=== PATIENT | female | born 1965 | race Caucasian/White ===

== ENCOUNTER → 2020-05-22 | Outpatient (CLI) | payer BC, OTHER ==
--- NOTE | 2020-05-22 16:26 | RAD ---
EXAM: MRI RIGHT SHOULDER WITHOUT CONTRAST INDICATION: Worsening chronic right shoulder pain COMPARISON: Right shoulder radiograph 05/10/2020 TECHNIQUE: Multiplanar, multisequence imaging of the right shoulder Without contrast. FINDINGS: ROTATOR CUFF: Mild supraspinatus tendinopathy. Infraspinatus, subscapularis, teres minor tendons are intact.. Rotator cuff muscles are normal. LABRUM: Circumferential degenerative labral tear. BICEPS TENDON: There is intra-articular biceps tendinopathy. The biceps tendon is displaced as it exits the joint by a healing humeral head fracture fragment. ACROMIOCLAVICULAR JOINT: Within normal limits. GLENOHUMERAL JOINT AND BONES: There is a healing comminuted humeral head fracture. There is osseous bridging across the mildly displaced greater tuberosity fracture component with no definite residual low signal fracture line. Partial bridging across the humeral neck fracture component with a persistent low signal fracture line. There is persistent T2 hyperintense signal along the humeral neck fracture line and in the proximal humeral shaft. There is somewhat serpiginous subchondral signal abnormality of the humeral head superiorly, adjacent to a fracture line (image 9 and 10, series 7 and 8). This could represent developing avascular necrosis. There is no subchondral collapse. Probable mild cartilage loss. Mild subchondral marrow edema in the superior glenoid. Alignment is normal. OTHER: Small amount of fluid in the joint and in the subacromial-subdeltoid bursa.. There is a 0.8 x 0.5 x 1.1 cm ovoid, well-circumscribed T2 hyperintense, T1 hypointense cystic lesion in the subcutaneous soft tissue overlying the posterior inferior deltoid muscle. IMPRESSION: 1. Healing proximal humerus fracture. There is somewhat serpiginous subchondral signal abnormality at the superior humeral head adjacent to the fracture that could represent developing avascular necrosis. No subchondral collapse. 3. Intra-articular biceps tendinopathy. Biceps tendon is displaced and mildly deformed by the healing fracture as it exits the joint. 2. Mild supraspinatus tendinopathy. No rotator cuff tear. 4. Circumferential degenerative labral tear. 5 1.1 cm subcutaneous cystic mass in the posterior shoulder. This could be a sebaceous cyst. Correlation with physical exam and ultrasound could be made to confirm. Electronically signed by: Essie Murray MD (05/22/2020 4:23 PM) [id number]
== END ==
LOC: MRI 11:01
PROVIDERS: ATTEND Physician Assistant
DX: S42.301A Unspecified fracture of shaft of humerus, right arm, initial encounter for closed fracture (principal); M12.811 Other specific arthropathies, not elsewhere classified, right shoulder; M75.101 Unspecified rotator cuff tear or rupture of right shoulder, not specified as traumatic; X58.XXXA Exposure to other specified factors, initial encounter; Y93.89 Activity, other specified; Y92.89 Other specified places as the place of occurrence of the external cause; Y99.8 Other external cause status
CPT/HCPCS: 73221

== ENCOUNTER → 2020-07-04 | Outpatient (CLI) | payer OTHER ==
[~2020-07-04] MED LIST: MV-M1TAB7 PO; OXYC1TAB19 PO
--- NOTE | 2020-07-04 10:45 | EKG ---
[facility] [address] [place] [address] Test Date: 2020-07-04 Test Time: 10:39:35 Pat Name: YADIEL CARRERA Department: Room: Gender: F Night Warehouse Manager: DL0 : 1965 Requested By: LINWOOD LAWRENCE Order Number: [id number] Reading MD: Tyler Schuster Measurements Intervals [place] Rate: 84 P: 63 NH: 162 QRS: 65 QRSD: 76 T: 44 QT: 374 QTc: 445 Interpretive Statements SINUS RHYTHM MINIMAL NONSPECIFIC T WAVE CHANGES RI6.02 No previous ECG available for comparison Electronically Signed On 07-06-2020 11:50:25 ASSISTANT COMMUNITY MANAGER by Tyler Schuster
[2020-07-04 10:47] LABS: BASO % 1 % (0-3); EOS # 0.1 x10^3/uL (0.0-0.7); EOS % 2 % (0-3); HEMOGLOBIN 14.9 g/dL (12.0-15.5); LYMPH # 1.4 x10^3/uL (1.0-4.8); LYMPH % 27 % (24-48); MEAN CORPUSCULAR HEMOGLOBIN 35 pg (25-35); MEAN CORPUSCULAR HGB CONC 34 g/dL (31-37); MEAN CORPUSCULAR VOLUME 102 fL (79-100); MONO # 0.4 x10^3/uL (0.0-1.1); MONO % 8 % (0-9); NEUT # 3.4 x10^3/uL (1.8-7.7); NEUT % 63 % (31-73); PLATELET COUNT 207 x10^3/uL (140-400); RED BLOOD COUNT 4.31 x10^6/uL (3.50-5.40); RED CELL DISTRIBUTION WIDTH 13.5 % (11.5-14.5); WHITE BLOOD COUNT 5.4 x10^3/uL (4.0-11.0)
[2020-07-04 10:50] LABS: PROTHROMBIN TIME PATIENT 13.4 SEC (11.7-14.0)
[2020-07-04 10:51] LABS: ALBUMIN 3.6 g/dL (3.4-5.0); ANION GAP 10 (6-14); BLOOD UREA NITROGEN 7 mg/dL (7-20); CALCIUM 8.5 mg/dL (8.5-10.1); CARBON DIOXIDE 27 mmol/L (21-32); CHLORIDE 98 mmol/L (98-107); CREATININE 0.6 mg/dL (0.6-1.0); GFR 103.4; GLUCOSE 139 mg/dL (70-99); POTASSIUM 3.6 mmol/L (3.5-5.1); SODIUM 135 mmol/L (136-145)
[2020-07-04 11:18] LABS: C-REACTIVE PROTEIN < 0.5 mg/L (0-3.3)
--- NOTE | 2020-07-04 16:31 | RAD ---
PA and lateral views of the chest. Comparison: None. Indication: Preop evaluation Findings: The heart size is normal. No pneumothorax or effusion. No air space or interstitial disease. The bon y structures are intact. Impression: 1. No acute cardiopulmonary process. Electronically signed by: Srini Burns MD (07/04/2020 4:28 PM) [id number]
[2020-07-04 23:13] LABS: HEMOGLOBIN A1C 4.6 % (4.8-5.6)
== END ==
LOC: SURGPAT 09:35
PROVIDERS: ATTEND Orthopaedic Surgery
DX: Z01.818 Encounter for other preprocedural examination (principal); S46.119A Strain of muscle, fascia and tendon of long head of biceps, unspecified arm, initial encounter; M87.00 Idiopathic aseptic necrosis of unspecified bone; X58.XXXA Exposure to other specified factors, initial encounter; Y93.89 Activity, other specified; Y92.89 Other specified places as the place of occurrence of the external cause; Y99.8 Other external cause status
CPT/HCPCS: 36415; 71046; 80048; 82040; 82306; 83036; 85025; 85610; 85730; 86140; 87641; 93005

== ENCOUNTER → 2020-08-15 | Outpatient (CLI) | payer OTHER ==
[~2020-08-15] MED LIST changes: -OXYC1TAB19 PO
[2020-08-15 11:33] LABS: BASO % 1 % (0-3); EOS # 0.1 x10^3/uL (0.0-0.7); EOS % 1 % (0-3); HEMATOCRIT 45.6 % (36.0-47.0); HEMOGLOBIN 15.3 g/dL (12.0-15.5); LYMPH # 1.3 x10^3/uL (1.0-4.8); LYMPH % 19 % (24-48); MEAN CORPUSCULAR HEMOGLOBIN 34 pg (25-35); MEAN CORPUSCULAR HGB CONC 34 g/dL (31-37); MEAN CORPUSCULAR VOLUME 101 fL (79-100); MONO # 0.7 x10^3/uL (0.0-1.1); MONO % 10 % (0-9); NEUT # 4.6 x10^3/uL (1.8-7.7); NEUT % 70 % (31-73); PLATELET COUNT 214 x10^3/uL (140-400); RED BLOOD COUNT 4.51 x10^6/uL (3.50-5.40); RED CELL DISTRIBUTION WIDTH 12.8 % (11.5-14.5); WHITE BLOOD COUNT 6.6 x10^3/uL (4.0-11.0)
[2020-08-15 11:49] LABS: PROTHROMBIN TIME PATIENT 13.2 SEC (11.7-14.0)
[2020-08-15 11:50] LABS: ALBUMIN 3.9 g/dL (3.4-5.0); ANION GAP 9 (6-14); BLOOD UREA NITROGEN 8 mg/dL (7-20); CALCIUM 9.4 mg/dL (8.5-10.1); CARBON DIOXIDE 28 mmol/L (21-32); CHLORIDE 95 mmol/L (98-107); CREATININE 0.7 mg/dL (0.6-1.0); GFR 86.6; GLUCOSE 115 mg/dL (70-99); POTASSIUM 4.2 mmol/L (3.5-5.1); SODIUM 132 mmol/L (136-145)
[2020-08-15 11:51] LABS: C-REACTIVE PROTEIN < 0.5 mg/L (0-3.3)
[2020-08-15 12:00] LABS: BILIRUBIN,URINE NEGATIVE (NEG); CLARITY,URINE CLEAR; COLOR,URINE YELLOW; NITRITE,URINE NEGATIVE (NEG); PH,URINE 5.5 (<5.0-8.0); PROTEIN,URINE NEGATIVE (NEG-TRACE); UROBILINOGEN,URINE 0.2 mg/dL (0.2 mg/dL)
[2020-08-15 12:15] LABS: BACTERIA,URINE FEW /HPF (0-FEW); RBC,URINE OCC /HPF (0-2); WBC,URINE 20-40 /HPF (0-4)
[2020-08-16 03:09] LABS: HEMOGLOBIN A1C 4.8 % (4.8-5.6)
== END ==
LOC: SURGPAT 10:05
PROVIDERS: ATTEND Orthopaedic Surgery
DX: Z01.812 Encounter for preprocedural laboratory examination (principal); S46.112A Strain of muscle, fascia and tendon of long head of biceps, left arm, initial encounter; M24.112 Other articular cartilage disorders, left shoulder; M87.00 Idiopathic aseptic necrosis of unspecified bone; X58.XXXA Exposure to other specified factors, initial encounter; Y93.9 Activity, unspecified; Y92.89 Other specified places as the place of occurrence of the external cause; Y99.8 Other external cause status
CPT/HCPCS: 36415; 80048; 81001; 82040; 82306; 83036; 85025; 85610; 85730; 86140; 87077; 87086; 87186; 87641

== ENCOUNTER → 2020-08-25 | Outpatient (CLI) | payer OTHER ==
[~2020-08-25] MED LIST changes: +OXYC1TAB19 PO
== END ==
LOC: LAB 10:24
PROVIDERS: ATTEND Orthopaedic Surgery
DX: Z01.812 Encounter for preprocedural laboratory examination (principal); Z20.822 Contact with and (suspected) exposure to COVID-19; S46.119A Strain of muscle, fascia and tendon of long head of biceps, unspecified arm, initial encounter; M87.00 Idiopathic aseptic necrosis of unspecified bone; X58.XXXA Exposure to other specified factors, initial encounter; Y93.89 Activity, other specified; Y92.89 Other specified places as the place of occurrence of the external cause; Y99.8 Other external cause status
CPT/HCPCS: U0003

== ENCOUNTER → 2020-08-29 | Day surgery (SDC) | payer OTHER ==
[~2020-08-29] VITALS: Ht 170.2 cm; Wt 59.4 kg
[~2020-08-29] MED LIST changes: +ACETAMINOPHEN 500 MG TABLET PO PRN; +DEXAMETHASONE SOD PHOS 4 MG/ML VIAL ONE; +EPINEPHrine 1 MG/ML VIAL IRR ONE; +GABAPENTIN 300 MG CAPSULE. PO PRN; +HYDROmorphone 2 MG/ML VIAL IVP PRN; +IV RINGERS,LACTATED 1000ML 1,000 ML IV SCH; +LIDOCAINE 2% PF 5 ML VIAL. ONE; +MELOXICAM 7.5 MG TABLET PO PRN; +MIDAZOLAM HCL/PF 2 MG/2 ML VIAL. ONE; +MORPHINE SULFATE 2 MG/ML VIAL. IVP PRN; +MORPHINE SULFATE 5 MG, KETOROLAC 30MG VIAL 30 MG, ROPIVacaine 0.5% PF 60 ML, EPINEPHrin... INT ART ONE; +ONDANSETRON PF 4 MG/2 ML VIAL. ONE; +PHENYLEPHRINE in 0.9% NACL PF 1 MG/10 ML SYRINGE. IV ONE; +PROCHLORPERAZINE 10 MG/2 ML VIAL. IVP PRN; +PROPOFOL 10 MG/ML (20ML) VIAL. IV ONE; +ROCURONIUM 50 MG/5 ML VIAL. ONE; +ROPIVacaine 0.5% PF 20 ML VIAL. ONE; +SEVOFLURANE 61 TO 120 MINUTES. IH ONE; +ceFAZolin SODIUM IV Push 1 GM VIAL. IVP PRN; +ePHEDrine PF IN SALINE 50 MG/10 ML SYRINGE. IV ONE; +fentaNYL PF VIAL 100 MCG/2 ML VIAL IVP PRN; +fentaNYL PF VIAL 100 MCG/2 ML VIAL ONE
--- NOTE | 2020-08-29 12:15 | HP ---
ADMIT DATE: 08/29/2020 CHIEF COMPLAINT: Right shoulder pain and weakness. HISTORY OF PRESENT ILLNESS: The patient sustained an injury about a year ago when she was trying to restrain her large pit bull from her neighbor's dogs. The right shoulder remains very painful to try and reach away from her side or overhead. She injured her left shoulder back in the summertime, but it was already much better even in late last year. 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 PAST MEDICAL HISTORY: Back pain. PAST SURGICAL HISTORY: Hysterectomy, ovarian cyst surgeries. FAMILY HISTORY: Father is . Mother alive. SOCIAL HISTORY: She has cut down on her smoking, now about a packet per day or less. Alcohol use, a couple of beers at night. Denies drug use. MEDICATIONS: List is reviewed. ALLERGIES: INCLUDE TETRACYCLINE AND DOXYCYCLINE. REVIEW OF SYSTEMS: Denies any recent chest pain, shortness of breath, febrile illness, focal weakness, numbness, tingling or constitutional symptoms. PHYSICAL EXAMINATION: VITAL SIGNS: Per admission sheet. HEENT: Atraumatic, normocephalic. HEART: Regular rate and rhythm. LUNGS: Clear to auscultation bilaterally. ABDOMEN: Benign. EXTREMITIES: Right shoulder is limited in terminal range of motion secondary to pain. Normal motion of the left shoulder, bilateral wrists and elbows and she has no apprehension or instability. She is tender over the bicipital groove and has painful clicking with motion. Rotator cuff strength is mildly limited on the right secondary to pain. She has normal parascapular motion bilaterally, normal examination of the contralateral shoulder, bilateral elbows and wrists. IMAGING: MRI showed some circumferential degenerative tearing of the labrum, significant bicipital fraying and subluxation at the bicipital groove. Also, subchondral changes in the humeral head, which was read out as healing proximal humerus fracture and adjacent developing avascular necrosis. IMPRESSION: Degenerative tear glenoid labrum, left shoulder; subluxation, long head biceps tendon; and fracture versus a possible avascular necrosis, right humeral head. TREATMENT PLAN: I had gone over with her the plan of addressing the labral issues in the bicipital subluxation, which I think are most likely the cause of her pain. Of additional concern is the possibility of avascular necrosis of the humeral head and if that is giving her significant limitations, we would potentially consider more of a shoulder arthroplasty rather than arthroscopic procedure with biceps tenodesis. 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 She would therefore prefer a minimalist approach if possible, arthroplasty as a backup plan if the humeral head is in bad condition or rotator cuff insertion is significantly compromised to where repair cannot be affected. We went through risks, benefits, postoperative course including the possibility of continued pain, nonhealing, progression of the avascular necrosis, nerve or blood vessel damage, medical or other anesthetic complications among others. All her questions were answered. She wishes to proceed with surgical evaluation and treatment which will occur today. Likely an outpatient basis, if she just has a biceps tenodesis; likely more overnight, if she has arthroplasty. LINWOOD LAWRENCE MD DR: CHRISTOPHER/sharee JOB#: [id number] / [id number]
--- NOTE | 2020-08-29 13:06 | DISCH ---
DISCHARGE INSTRUCTIONS Condition on Discharge Condition on Discharge: Stable Activity After Discharge Activity Instructions for Disc: Other, see below (Immobilizer on at night, may remove during day for fine motor use with right arm at side allowed pendulum exercises gentle reaching but no lifting pushing pulling) Lifting Instructions after Dis: No heavy lifting, No pulling or pushing Weight Bearing Status after Di: Non weight bearing Diet after Discharge Diet after Discharge: Regular Wound Incision Care Wound/Incision Care: Change dressing (Remove dressing in 2 days may then shower no soaking until wound check) Contacting the after DC Call your doctor for: Concerns you may have Follow-Up Follow up with: Dr. Macario 1 week LINWOOD MACARIO MD Aug 29, 2020 13:06
[2020-08-29 13:22] VITALS: BP 116/70
--- NOTE | 2020-08-29 17:21 | PDOC4 ---
Operative Note Operative Note Date of surgery: 08/29/2020 Preoperative diagnosis: Right shoulder SLAP tear and biceps subluxation with possible concern for avascular necrosis of humeral head Postoperative diagnosis: Same with SLAP tear and extensive labral fraying throughout as well as irregularity of the anterior humeral cartilage and moderate anterior subluxation Operative procedure: Right shoulder arthroscopy, extensive labral debridement, open biceps tenodesis and rotator interval closure Surgeon: Amirah Salesforce Consultant: Jeremiah Simmons volunteer assistant Anesthesia: General plus scalene block Estimated blood loss: 10 cc Complications: None Operative indications: Please see preoperative clinic note and note that we reviewed operative indications including the expected damage to the labrum based on her MRI most likely outcome of a biceps tenodesis and extensive labral debridement and addressing any other pathologic conditions as appropriate. 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 We covered the possibility of infection nerve or blood vessel damage continued pain medical or other anesthetic complications among others and the recovery process. All her questions were answered she wishes to proceed with surgical evaluation and treatment Operative text: Patient was identified procedure verified patient placed in the supine position on the operating table. After adequate amounts of general anesthesia plus a pre-existing scalene block were obtained she was placed in the beachchair position with T-Max headrest and spider arm isaacs and all bony prominences were well-padded. The right shoulder was then examined under anesthesia found to have full range of motion and some moderate anterior subluxation without gross instability. Right shoulder was then prepped and draped in standard sterile fashion and after timeout was performed patient procedure identified and verified a standard posterior portal was established an anterior portal established using spinal needle localization and the shoulder joint was systematically examined. She was noted to have severe labral fraying involving the entire periphery of the labrum and with a type II SLAP tear that compromised the biceps anchor. Labrum was debrided back to stable tissue with the arthroscopic bipolar electrocautery. There was also extensive scar tissue and synovitis debrided back to normal tissue inside the joint revealing the compromised biceps tendon which was tagged and tenotomized and released and the rotator cuff insertion was noted to be overall normal in appearance in terms of the edge of the rotator cuff footprint defined by the articular cartilage. The area more in question was the subscapularis as she had some slight displacement of the anterior bone in the humeral head in that area however subscapularis was noted to be palpably intact similarly with a needle placed through the anterior portal probing the area as well as with the arthroscopic probe. I therefore elected not to perform any debridement on the displaced area for fear of compromising the subscapularis insertion. After the extensive debridement and intra-articular evaluation the anterior portal was enlarged biceps was retrieved and tenodesed in the lower portion of the bicipital groove and to correct her anterior translation as the capsule was otherwise intact with respect to the anterior inferior glenohumeral ligament intra-articularly, an open rotator interval closure was performed with #2 max braid suture. This did help stabilize the moderate anterior subluxation of the shoulder without significantly limiting her external rotation or other motion. Excellent fixation of the biceps was noted with appropriate tensioning and with yarsanism of the bicep contour. Joint was drained of arthroscopic fluid portals and anterior incision closed with buried Vicryl suture skin closure with nylon sterile dressings were applied patient was returned to recovery room in stable condition having tolerated procedure well. And she was placed in a shoulder immobilizer for additional protection. Jeremiah taylor assist was present for the procedure assisted in patient positioning prepping draping retraction closure dressings LINWOOD LAWRENCE MD Aug 29, 2020 17:21
== END | disposition home or self-care (01) ==
LOC: SURG 09:17
PROVIDERS: ATTEND Orthopaedic Surgery
DX: S43.431A Superior glenoid labrum lesion of right shoulder, initial encounter (principal); I10 Essential (primary) hypertension; Z90.710 Acquired absence of both cervix and uterus; Z98.890 Other specified postprocedural states; Z79.899 Other long term (current) drug therapy; Z87.891 Personal history of nicotine dependence; Z72.89 Other problems related to lifestyle; Z88.1 Allergy status to other antibiotic agents; Z88.5 Allergy status to narcotic agent; X58.XXXA Exposure to other specified factors, initial encounter; Y93.89 Activity, other specified; Y92.89 Other specified places as the place of occurrence of the external cause; Y99.8 Other external cause status
CPT/HCPCS: 29823; 29828; 36415; 64415; 86850; 86900; 86901; A4556; A4928; A4930; C1713; J0171; J0690; J1100; J1885; J2250; J2270; J2370; J2405; J2704; J2795; J3010